=== PATIENT | male | born 1970 | race African-American/Black ===

== ENCOUNTER 2024-03-30 13:18 | Emergency (ER) | payer OTHER, SELFPAY ==
[~2024-03-30 13:18] MED LIST: Iopamidol-370 76% 500 ML MDV (1 ML CHARGE) ONE
[2024-03-30 14:29] LABS: #Basophils 0.03 10x3/uL (0.0-0.2); %Basophils 0.4 % (0.0-1.0); %Eosinophils 0.6 % (0.0-10.0); %Lymphocytes 27.8 % (21.0-51.0); %Monocytes 11.5 % (0.0-10.0); %Neutrophils 59.4 % (42.0-75.0); Hematocrit 38.5 % (42.0-52.0); Hemoglobin 12.8 g/dL (14.0-18.0); Mean Corpuscular HGB CONC 33.2 g/dL (32.0-36.0); Mean Corpuscular Hemoglobin 34.6 pg (27.0-31.0); Mean Corpuscular Volume 104.1 fL (78.0-98.0); Mean Platelet Volume 8.6 fL (7.4-10.4); Platelet Count 464 10x3/uL (130-400); RBC Distribution Width 11.7 % (11.5-14.5)
[2024-03-30 14:46] LABS: ALT (SGPT) 24 U/L (8-55); AST (SGOT) 30 U/L (5-34); Albumin 3.9 g/dL (3.5-5.0); Alkaline Phosphatase 49 U/L (40-110); Anion Gap 11 mmol/L (10-20); BUN (Urea Nitrogen) 13 mg/dL (8.4-25.7); Bilirubin, Total 0.7 mg/dL (0.2-1.2); Calc. Creatinine Clearance 0 mL/min (70-130); Calcium 9.6 mg/dL (7.8-10.44); Carbon Dioxide 27 mmol/L (22-29); Chloride 105 mmol/L (98-107); Estimated GFR 106; Glucose 89 mg/dL (70-105); Lipase 31 U/L (8-78); Potassium 4.2 mmol/L (3.5-5.1); Protein, Total 7.9 g/dL (6.0-8.3); Sodium 139 mmol/L (136-145)
[2024-03-30] MEDS ORDERED: Dicyclomine 20 MG/2 ML VIAL ONE (15:24)
[2024-03-30] MEDS ORDERED: Acetaminophen 500 MG TAB ONE (15:50)
[2024-03-30 15:55] LABS: Magnesium 1.9 mg/dL (1.6-2.6)
[2024-03-30 16:05] LABS: Troponin I Less than 0.010 ng/mL (< 0.028)
[2024-03-30 17:49] LABS: Bacteria/HPF None Seen HPF (None Seen); Bilirubin Negative (Negative); Blood, Urine Negative (Negative); CAUTI Indications for Culture < 2yrs of age; Clarity Clear (Clear); Glucose, Urine (Dipstick) Normal (Negative); Ketone, Urine 10 mg/dL (Negative); Leukocyte Negative Leu/uL (Negative); Nitrite Negative (Negative); Protein, Urine (Dipstick) 20 mg/dL (Neg-Trace); RBC/HPF 0-3 HPF (0-3); Squamous Epithelial None Seen HPF (0-3); Urobilinogen Normal mg/dL (Less than 2); WBC/HPF 0-3 HPF (0-3)
[2024-03-30 17:51] LABS: Specific Gravity, Urine Greater than 1.060 (1.002-1.036)
[2024-03-30 17:53] LABS: Urine Culture Reflex Yes Yes
== END 2024-03-30 19:34 | disposition home or self-care (01) ==
LOC: ERS 13:18
DX: N28.1 Cyst of kidney, acquired (principal)
CPT/HCPCS: 36415; 74177; 80053; 81001; 83690; 83735; 84484; 85025; 85730; 87086; 93005; 96372; Q9967